=== PATIENT | female | born 1955 | race Asian ===

== ENCOUNTER 2019-06-30 20:25 | Inpatient (IN) | payer OTHER, MEDICAID ==
[~2019-06-30] VITALS: Ht 160 cm; Wt 47.6 kg
[2019-06-30 21:55] LABS: BASOPHIL % 0.3 % (0-2); PLATELET COUNT 202 x10^3mcL (130-400); RED CELL DISTRIBUTION WIDTH 14.3 % (11.5-14.5)
--- NOTE | 2019-06-30 22:36 | NUR ---
PT TAKEN TO CT VIA JESSENIA JOSEPH BY DEICER INSPECTOR PNEUMATIC
--- NOTE | 2019-06-30 22:39 | NUR ---
PT BIB FAMILY FOR C/O BODY ACHES AND INABILITY TO EAT TODAY. PER PT FAMILY THE PT HAS CANCER AND IS SLOWLY "GOING DOWN HILL". PER FAMILY THE PT USUALLY EATS BY MOUTH BUT DOES NOT TALK. PT HAS NOT BEEN ABLE TO EAT ANYTHING TODAY. PT IS ALERT BUT MUTE. PT IS ABLE TO FOLLOW SIMPLE COMMANDS APPROPRIATELY. PT RESPS ARE E/U. PT IS PLACED ON CM AND VSS ARE WITHIN NORMAL LIMITS. NO ACD NOTED
--- NOTE | 2019-06-30 22:49 | NUR ---
PT RETURNED FROM CT WITH NO INCIDENCE
[2019-06-30 23:39] LABS: CALCIUM 8.3 mg/dL (8.5-10.1); CARBON DIOXIDE 28.5 mmol/L (21-32); CHLORIDE SERUM 104 mmol/L (98-107); CREATININE SERUM 0.6 mg/dL (0.6-1.0); GFR1 > 60 mL/min; GLUCOSE SERUM 202 mg/dL (74-106); POTASSIUM SERUM 3.3 mmol/L (3.5-5.1); SODIUM SERUM 142 mmol/L (136-145)
[2019-06-30 23:43] LABS: ALBUMIN 3.4 g/dL (3.4-5.0); ALKALINE PHOSPHATASE 410 U/L (46-116); ALT/SGPT 28 U/L (14-59); AST/SGOT 37 U/L (15-37); LIPASE 263 IU/L (73-393); TOTAL PROTEIN, SERUM 6.8 g/dL (6.4-8.2)
[2019-07-01] VITALS (8 sets, daily range): BP systolic 143–167; BP diastolic 65–87
--- NOTE | 2019-07-01 00:26 | NUR ---
PT RESTING IN POSITION OF COMFORT AT THIS TIME. PT FAMILY AT BEDSIDE. CHEMA CHEST RISE AND FALL NOTED. NO ACD
[2019-07-01] MEDS ORDERED: METFORMIN HYDR500 M1 (00:59)
--- NOTE | 2019-07-01 01:05 | NUR ---
GAVE PT REPORT TO SCOTTY LIANG WHO WILL ASSUME PRIMARY CARE OF PT ONCE THEY ARE TAKEN UPSTAIRS TO MED SURG FLOOR.
--- NOTE | 2019-07-01 01:19 | NUR ---
RECEIVED PT FROM ED VIA [employer], CAME IN DUE TO INABILITY TO SWALLOW X1 DAY. PT HAS HER EYES OPEN, DOES NOT FOLLOW COMMANDS, NON-VERBAL. NO SOB NOTED, LUNG SOUNDS DIMINISHED ON AUSCULTATION. O2 SAT=96%, RA. NO S/S OF CHEST PAIN/PRESSURE, MD=77. NO S/S OF ABDOMINAL PAIN/NAUSEA/VOMITING. ABDOMEN IS SOFT. BOWEL SOUNDS HYPOACTIVE. LAST BM=06/27/19, HAD CONSTIPATION 2 WEEKS AGO. URINE INCONTINENT. IV SITE PATENT AND INTACT. W/ BROWN DISCOLORATION ON THE SACRAL-COCCYGEAL AREA. SIDE RAILS UPX2. CALL LIGHT ON REACH. HOB ELEVATED AT 30 DEG. BILATERAL HEELS ELEVATED W/ A PILLOW. NILESH CONT TO MONITOR
--- NOTE | 2019-07-01 01:20 | NUR ---
PT ALSO HAS BLANCHABLE ERYTHEMA ON THE BUTTOCKS, OPTIFOAM APPLIED FOR PROTECTION.
[2019-07-01 02:04] LABS: CHOLESTEROL/HDL RATIO 5.8
--- NOTE | 2019-07-01 04:10 | NUR ---
PT PULLED OUT IV ON THE LFA GAUGE 20, NEW IV SITE INSERTED ON THE LFA GAUGE 22 W/ GOOD BLOOD RETURN. PT HAD AN EPISODE OF URINE INCONTINENCE, FOUL ODOR NOTED. PT CLEANED AND MADE COMFORTABLE. BILATERAL HEELS KEPT ELEVATED W/ PILLOWS. TURNED AND REPOSITIONED ON HER RIGHT SIDE. NOTED PT ABLE TO MOVE BUE AND BLE, HAS HER EYES OPEN, BUT DOES NOT FOLLOW COMMANDS. WILL CONT TO MONITOR
--- NOTE | 2019-07-01 05:03 | NUR ---
DR. ARELLANO MADE AWARE THAT POTASSIUM=3.3 AND PT'S URINE HAS A FOUL ODOR, PER DR. ARELLANO SHE WILL PLACE IN AN ORDER FOR STRAIGHT CATH FOR URINE COLLECTION. DR. ARELLANO ALSO MADE AWARE THAT BLOOD LQBUS=245, PER DR. ARELLANO HOLD INSULIN COVERAGE AT THIS TIME.
[2019-07-01 06:40] LABS: PLATELET COUNT 170 x10^3mcL (130-400); RED CELL DISTRIBUTION WIDTH 14.1 % (11.5-14.5)
[2019-07-01 06:59] LABS: BASOPHIL % 0 % (0-2)
--- NOTE | 2019-07-01 07:08 | NUR ---
BEDSIDE REPORT GIVEN TO D[place]OTA FOR CONTINUITY OF CARE
--- NOTE | 2019-07-01 07:15 | NUR ---
RECEIVED PT FROM AMMUNITION COMPONENTS INSPECTOR. PT ASLEEP, LETHARGIC, NONVERBAL. PT ON ROOM AIR WITH DIMINISHED LUNG SOUNDS NOTED. PT MED/SURG, NO CHEST PAIN NOTED. PERIPHERAL PULSES PALPABLE, NO EDEMA NOTED. IV ACCESS LFA, CDI INFUSING NS AT 75ML/HR. PT WITH HYPOACTIVE BS NOTED, HX OF CONSTIPATION. PT INCONTINENT OF URINE. PT WITH GENERALIZED WEAKNESS, LETHARGIC, BEDBOUND. SAFETY MEASURES IN PLACE, BED LOW AND LOCKED. CALL LIGHT WITHIN REACH.
--- NOTE | 2019-07-01 07:15 | NUR ---
RECEIVED PT FROM DRILL INSTRUCTOR. PT NONVERBAL, ASLEEP. PT ON ROOM AIR WITH NO RESP DISTRESS NOTED, LUNG SOUNDS DIMINISHED. PT ON TELE 4, NO CHEST PAIN NOTED. IV ACCESS LFA, CDI INFUSING NS AT 75ML/HR AND IVPB POTASSIUM. PERIPHERAL PULSES PALPABLE, NO EDEMA NOTED. HYPOACTIVE BS NOTED. PT INCONTINENT. PT BEDBOUND, NO ACUTE DISTRESS OR DISCOMFORT NOTED AT THIS TIME. SAFETY MEASURES IN PLACE, BED LOW AND LOCKED. CALL LIGHT WITHIN REACH.
[2019-07-01 07:27] LABS: CALCIUM 8.1 mg/dL (8.5-10.1); CARBON DIOXIDE 27.9 mmol/L (21-32); CHLORIDE SERUM 104 mmol/L (98-107); CREATININE SERUM 0.4 mg/dL (0.6-1.0); GFR1 > 60 mL/min; GLUCOSE SERUM 231 mg/dL (74-106); MAGNESIUM 2.5 mg/dL (1.8-2.4); POTASSIUM SERUM 3.1 mmol/L (3.5-5.1); SODIUM SERUM 139 mmol/L (136-145)
[2019-07-01 08:22] LABS: microscopic required? YES; urine erythrocyte TRACE (NEGATIVE)
--- NOTE | 2019-07-01 10:08 | NUR ---
POTASSIUM 3.1, DR. BAXTER AWARE.
--- NOTE | 2019-07-01 10:31 | NUR ---
DR MOONEY AWARE FAMILY MEMBER SAKSHI WANTS TO SPEAK WITH HIM.
--- NOTE | 2019-07-01 10:47 | NUR ---
DR. MOONEY AWARE POTASSIUM 3.1. PT HAD K-RIDER IVPB THIS AM AFTER LAB DRAW. DR DIAS.
--- NOTE | 2019-07-01 11:22 | NUR ---
PT CLEANED WITH CHG WIPES. SURGERY CHECKLIST COMPLETED. PT URINATED, CLEANED AND REAPPLIED OPTIFOAM. PT PICKED UP FOR EGD/PEG PLACEMENT PROCECDURE.
--- NOTE | 2019-07-01 11:34 | NUR ---
PT OFF THE FLOOR FOR PROCEDURE, UNABLE TO CHECH BLOOD SUGAR AT THIS TIME.
--- NOTE | 2019-07-01 12:30 | NUR ---
PT BACK FROM PROCEDURE. PT ASLEEP. VSS, NO DISCOMFORT NOTED AT THIS TIME. GTUBE DRESSING CDI. FAMILY AT BEDSIDE.
--- NOTE | 2019-07-01 14:34 | NUR ---
DISCHARGE INSTRUCTIONS/EDUCATION PROVIDED TO PATIENT. PT TO FOLLOW UP WITH CLINIC PROVIDED IN 2-3 DAYS. PT ENCOURAGED TO ATTEND DIABETIC EDUCATION CLASS. PT VERBALIZED UNDERSTANDING. BS CHECK 327 AT THIS TIME. TELE BOX RETURNED TO [employer]. IV ACCESS REMOVED WITH CATHETER INTACT. NO REDNESS OR BLEEDING NOTED. SAFETY MAINTAINED.
--- NOTE | 2019-07-01 16:00 | NUR ---
PT FEEDING INITIATED AT THIS TIME. NO GASTRIC RESIDUAL NOTED. PT ON GLUCERNA 1.2 AT 20ML/HR WITH WATER FLUSH 40ML Q6 HOURS. HOB AT 35 DEGREES. SAFETY MAINTAINED.
--- NOTE | 2019-07-01 16:17 | NUR ---
DAUGHTER SAKSHI CALLED REQUESTING TO CALL DR MIGUEL MARIE ONCOLOGIST TO THE PATIENT AT [phone] TO EXPLAIN PT CONDITION BEFORE ADMISSION TO [facility] [place]. DR SAHIL DIAS.
--- NOTE | 2019-07-01 17:44 | NUR ---
PT RESTING WITH NO DISCOMFORT OR DISTRESS NOTED AT THIS TIME.
--- NOTE | 2019-07-01 18:57 | NUR ---
Speech Pathology notes: Pt had GT placement today per Clara LIANG. Pt not following any directions per RN. Clara. No swallow evaluation today.
--- NOTE | 2019-07-01 19:01 | NUR ---
PT STABLE AT THIS TIME. WILL CONTINUE TO MONITOR AND ENDORSE CARE TO UI UX WEB DEVELOPER.
--- NOTE | 2019-07-01 19:25 | NUR ---
RECEIVED PT RESTING IN BED, SUPPORTIVE FMAILY AT BEDSIDE. PT NONVERBAL, HX OF STAGE 4 LUNG CANCER WITH METS TO BRAIN. PT S/P EGD &PEG TUBE INSERTION WITH GLUCERNA RUNNING AT 20ML/HR CURRENTLY. WILL ADVANCE RATE TO 30ML/HR IF RESIDUAL PERMITS. PT MEDSURG, PULSES PALPABLE BILAT. SCDS ON. RESP EVEN AND UNLABORED ON RA, NO S/S OF SOB. DIM BILAT BASES. ABD SOFT, FLAT, WITH PEG TUBE IN PLACE, DSG CDI. PT INCONTINENT OF URINE AND STOOL, ON AIR MATTRESS. BLANCHABEL REDNESS TO SACRAL AREA, OPTIOFRM IN PLACE. IV SITE TO THE LFA PATENT, NS @ 75ML/HR. NO REDNESS, SWELLING OR PAIN NOTED. PT RECEIVING ANTIBIOTICS, ALL COMFORT AND SAFETY MEASURES PROVIDED FOR, CALL LIGHT WITHIN REACH, BED IN LOWEST POSITION, WILL CONTINUE TO MONITOR.
--- NOTE | 2019-07-01 19:45 | NUR ---
SPOKE TO FAMILY IN REGARDS TO ENSURING CONTINUITY OF CARE. PT IS BEING SEEN OUTPATIENT BY ONCOLOGY . (DR MIGUEL MARIE: [phone]). FAMILY REQUEST TO HAVE RESIDENT TEAM MANAGING PATIENT TO PHONE DR MIGUEL MARIE IN AM AFTER ROUNDS TO UPDATE WITH PLAN OF CARE. UPDATED PT FAMILY THE DOCTORS WITH DO ROUNDS IN AM AND THEY WILL BE ABLE TO PHONE FOR COLLABORATION OF INTERDISCIPLANARY TEAMS. FAMILY REPROTS UNDERSTANDING, ALL QUESITONS AND CONCERNS ADDRESSED, CALL LIGHT WITHIN REACH, BED IN LOWEST POSITION, WILL CONTINUE TO MONITOR.
--- NOTE | 2019-07-01 22:00 | NUR ---
PT ON TUBE FEEDINGS CURRENTLY RUNNING AT 20ML/HR, PER ORDER, CHECKED RESIDUAL= 10ML, RETURNED BACK TO PT AND ADVANCED TUBE FEEDING RATE BY 10ML. CURRENT TUBE FEEDING RATE NOW= 30ML/HR. WILL CONTINUE TO MONITOR TO TOLERANCE AND ADJUST ACCORDINGLY. NEXT SCHEDUELD RATE CHANGE AT 0400 07/02, WILL ASSESS RESIDUAL TO ENSURE ADVANCEMENT IS APPROPRIATE. CALL LIGHT WITHIN REACH, BED IN LOWEST POSITION, WILL CONTINUE TO MONITOR.
[2019-07-02] VITALS (7 sets, daily range): BP systolic 150–178; BP diastolic 68–88
--- NOTE | 2019-07-02 05:00 | NUR ---
PT RESTED IN INTERVALS DURING SHIFT, NO ACUTE CHANGES OCCURRING OVERNIGHT. PT TOLERATING TUBE FEEDINGS WELL, CURRENT RATE OF GLUCERNA 1.2 @ 40ML/HR, FWF 40ML Q6H, VERY LITTLE RESIDUAL WHEN CHECKED (<10ML). ALL RETURNED BACK TO PT, IV SITE REMAINS PATENT TO LFA, NS @ 75ML/HR. NO REDNESS, SWELLING OR PAIN NOTED. OPTIFORM TO BUTTOCKS REPLACED, CDI. PT NOW ON ZOSYN, PT REMAINS ON RA. ALL COMFORT AND SAFETY MEASURES PROVIDED FOR, CALL LIGHT WITHIN REACH, BED IN LOWEST POSITION, WILL CONTINUE TO MONITOR.
[2019-07-02 06:15] LABS: PLATELET COUNT 176 x10^3mcL (130-400); RED CELL DISTRIBUTION WIDTH 13.7 % (11.5-14.5)
--- NOTE | 2019-07-02 06:17 | NUR ---
CHECKED PT BLOOD SUGAR= 239, SPOKE TO DR. ARELLANO IN REGARDS TO COVERAGE, PER DR. ARELLANO, WILL HOLD OFF ON INSULIN, WILL COLLABORATE WITH NGUYỄN IN REGARDS TO MANAGING SUGARS IN THE FUTURE WHILE PT ON TUBE FEEDINGS. PT CURRENTLY WITH GLUCERNA 1.2 @ A RATE OF 40ML/HR. NEXT RATE INCREASE SCHEDULED FOR 10AM IF THE RESIDUAL PERMITS. PT RESIDUAL HAS REMAINED < 10ML DURING ROUTINE CHECKS. ALL RETURNED BACK TO PT. PT BED LINENS CHANGED, OPTIFORM REPLACED TO SACRAL AREA, CALL LIGHT WITHIN REACH, BED IN LOWEST POSITION, WILL CONTINUE TO MONITOR.
[2019-07-02 06:38] LABS: CALCIUM 8.2 mg/dL (8.5-10.1); CARBON DIOXIDE 28.7 mmol/L (21-32); CHLORIDE SERUM 103 mmol/L (98-107); CREATININE SERUM 0.3 mg/dL (0.6-1.0); GFR1 > 60 mL/min; GLUCOSE SERUM 245 mg/dL (74-106); MAGNESIUM 2.3 mg/dL (1.8-2.4); PHOSPHOROUS 2.7 mg/dL (2.5-4.9); POTASSIUM SERUM 3.4 mmol/L (3.5-5.1); SODIUM SERUM 136 mmol/L (136-145)
[2019-07-02 06:50] LABS: BASOPHIL % 0 % (0-2)
--- NOTE | 2019-07-02 07:20 | NUR ---
RECEIVED PT IN BED. ASSESSED AND DOCUMENTED. DENIES PAIN THIS TIME. STABLE. TOLERATING FEEDING WELL. SAFTEY PRECAUTIONS ARE IN PLACE. WILL MONITOR.
--- NOTE | 2019-07-02 10:00 | NUR ---
CHECKED GASTRIC RESIDUAL, ONLY 2ML NOTED, INCREASE RATE TO 50ML/HR. WILL MONITOR.
--- NOTE | 2019-07-02 10:53 | NUR ---
INFORMED ABOUT BP 167/68 AND RECEIVED ORDER FOR HCTZ 12.5MG PO AND GIVEN. WILL RECHECK BP. PT ASYMPTAMATIC.
--- NOTE | 2019-07-02 11:35 | NUR ---
Initial Nutrition Assessment: 201/B JULIANNA MOSLEY [place] HR Dx: Failure to thrive PMHx: DM, Stage 4 lung cancer PSHx: none Labs: K 3.4L, BG 245H, TG 167H, CHOL 214H, LDL 142H, A1C 6.3H, WBC 12.7H Meds: D50%, Humulin, morphine, Zofran, zosyn Diet: PEG Glucerna 1.2 @ 20 ml/hr, goal 50 ml/hr, advance Q6H, FWF 40 ml Q6H PO intake since admission: NPO Ht: 160.02 cm (63") Wt: 47.6 kg (105#) BMI: 18.6 kg/m2 Bed scale: 47.6 kg IBW: 115# (52 kg) %IBW: 91 UBW: unable to access Age: 64/F Food Allergies: NKFA Skin: discoloration to sacral area Donald:12 Edema: none GI: Last BM: 06/27 Per H&P, Pt is a 64-year-old female with PMH of DM, lung cancer with mets was brought in by her family because she was not eating or drinking anything since last night. Her daughter reported that patient is unable to swallow water and when she tried giving, it was drooling, so she called her oncologist who asked her to go to the ER. RD Note (07/02): Patient was sleeping and Glucerna 1.2 was running @ 40 ml/hr. Per AZUL Best, rate will be increased to 50 ml/hr soon and that patient is tolerating tube feedings without any residuals. Patient is to be D/C today with bolus feedings. Per progress note (07/02), GI consulted; Dr Westbrook placed PEG tube and Tube feeding is initiated, currently at 40 ml/hr. Problem with: N/V/D/C: none per RN Problems with: Chewing: Swallowing: yes Current appetite: unable to access Recent wt change: unable to access %wt change: n/a Vitamin/Supplement use: unable to access Special diet at home: unable to access Physical activity: unable to access Nutrition education given: not possible at this time Food-drug interactions: none Education given: n/a Estimated Nutritional Needs Based on body weight (47.6 kg) Energy: 8467-4873 kcal/day (30-35 kcal/kg for geriatric maintenance) Protein: 57-67 g/day (1.2-1.4 g/kg for geriatric maintenance) Fluid: 7221-2188 mL/day (1 mL/kcal) Nutrition Diagnosis: 1. Increased nutrient needs related to lung cancer, geriatric age as evidenced by estimated calorie and protein needs, WBC 12.7 Intervention 1. Bolus feedings recommendations: Glucerna 1.2, bolus of 200 ml Q4H, FWF 80 ml Q4H/ or per MD. This will provide 1440 kcal and 72g protein. This will meet 100% calorie and protein needs of the patient. Paged Dr. Eaton, waiting for call back. Monitor/Evaluate Goal: TF intake at least 75% of estimated needs Monitor: TF intake/ tolerance, Labs, GI function F/U in 2-3 days as high risk 1/2-3
--- NOTE | 2019-07-02 12:00 | NUR ---
RECHECK BP IS 159/87 AFTER HCTZ VIA GT ORDERED, INFORMED ABOUT THAT. ASYMPTAMATIC, STABLE.
--- NOTE | 2019-07-02 12:30 | NUR ---
FAMILY AT BEDSIDE. EDUCATED PT AND DAUGHTER ABOUT HOW TO GIVE BOLUS FEEDING, THEY UNDERSTOOD BUT NOT COMFORTABLE TO DO IT AT HOME BY THEMSELVES. INFORMED ABOUT THAT. HE SAID SHE WILL HOLD DISCHARGE AND WAIT FOR HH ARRANGE. FAMILY AWARE AND REQUESTED FOR TO TALK TO S.S AND GAVE SS CALL AND THEY CAME AND SPOKE WITH PT. PT IS STABLE. CHARGE NURSE AWARE ABOUT EVERYTHING. DENIES ANY PAIN.
--- NOTE | 2019-07-02 13:00 | NUR ---
PT IS STABLE, EYES ARE OPEN THIS TIME BUT STILL NONVERBAL AND NO OTHER RESPONSES. STABLE.
--- NOTE | 2019-07-02 15:33 | NUR ---
SPOKE WITH DR. BAXTER REGARDING D/C PLAN NOTED ORDER FOR DISCHARGE FOR 07/04/19. PER DR. BAXTER PLAN D/C AT THAT TIME. MADE AWARE THAT DR. PAREDES HAS SPOKE WITH FAMILY AND HOSPICE WAS DISCUSSED. FAMILY WAS OPEN TO HOSPICE AND THEY STATED THAT THEY WANTED TO SPEAK WITH ONCOLOGIST BEFORE MAKING FINAL DICISION. NOTIFIED ATTENDING NURSE AND CM WELL. CONT TO MONITOR.
--- NOTE | 2019-07-02 17:53 | NUR ---
BP 178/88 WITH MAP 145, INFORMED SADULA AND SHE ORDERED HYDRALAZINE 10MG GT AND GIVEN. PT ASYMPTAMATIC. NO SIGNS OF ANY PAIN NOTED. NO MOANING NOTED. PT IS SLEEPING THIS TIME. STABLE. WILL RECHECK BP.
--- NOTE | 2019-07-02 18:45 | NUR ---
RECHECKED BP 160/84 AFTER HYDRALAZIN, WILL ENDORSE TO PM SHIFT FOR MONITERING BP. PT IS STABLE. DENIES ANY PAIN.
--- NOTE | 2019-07-02 19:20 | NUR ---
PT RESTING IN BED, SLEEPING THIS TIME. STABLE. GAVE REPORT TO AIRCRAFT PNEUDRAULIC SYSTEMS MECHANIC NURSE.
--- NOTE | 2019-07-02 19:25 | NUR ---
Pt. received from day shift, currently asleep, but arousable using verbal, tactile, and light pain stimuli on collar bone at this time. Pt. has no s/o distress, sob, or pain. Pt. at this time responds to name and is able to open eyes at this time. Peg Tube feeding in currently running at 40 cc/hr, will continue to monitor pt. IV site patent on LFA w/ NS running at 75 mL/hr, no s/o infiltration or redness at site. Pt. safety in check w/ call light placed within reach, bed set at lowest position, will continue to monitor pt. at this time.
--- NOTE | 2019-07-03 02:19 | NUR ---
Pt. currently asleep, but arousable using tactile stimuli. Pt. BP noted 163/83, hydralazine PO given (Check eMar for time). Pt. BP rechecked later, 156/77, pt has no s/o distress or pain throughout the shift. Will continue to monitor pt. at this time.
[2019-07-03 05:05] VITALS: BP 158/79
[2019-07-03 06:39] LABS: PLATELET COUNT 176 x10^3mcL (130-400)
[2019-07-03 06:49] LABS: ALKALINE PHOSPHATASE 387 U/L (46-116); ALT/SGPT 36 U/L (14-59); AST/SGOT 39 U/L (15-37); BILIRUBIN TOTAL 0.52 mg/dL (0.20-1.00); CALCIUM 8.6 mg/dL (8.5-10.1); CARBON DIOXIDE 30.7 mmol/L (21-32); CHLORIDE SERUM 98 mmol/L (98-107); CREATININE SERUM 0.3 mg/dL (0.6-1.0); GFR1 > 60 mL/min; GLUCOSE SERUM 256 mg/dL (74-106); MAGNESIUM 2.3 mg/dL (1.8-2.4); PHOSPHOROUS 3.1 mg/dL (2.5-4.9); POTASSIUM SERUM 3.5 mmol/L (3.5-5.1); SODIUM SERUM 135 mmol/L (136-145)
[2019-07-03 06:57] LABS: ALBUMIN 2.8 g/dL (3.4-5.0); TOTAL PROTEIN, SERUM 6.1 g/dL (6.4-8.2)
--- NOTE | 2019-07-03 07:20 | NUR ---
RECEIVED PT IN BED. ASSESSED AND DOCUMENTED. STABLE. DENIES ANY PAIN. SAFTEY PRECAUTIONS ARE IN PLACE. WILL MONITOR. REPOSITIONING PT Q2H, ON AIRMATTRESS.
[2019-07-03 07:45] VITALS: BP 170/77
[2019-07-03 08:40] LABS: BASOPHIL % 0 % (0-2)
--- NOTE | 2019-07-03 09:45 | NUR ---
PT BP 170/77 WITH MAP 96, HCTZ 12.5 MG PO GIVEN ORDERED. HARD METALS HAND ENGRAVER DAYLIN AWARE ABOUT BP. WILL RECHECK BP. PT ASYMPTAMATIC.
[2019-07-03 10:27] VITALS: BP 155/74; BP 155/743
--- NOTE | 2019-07-03 10:30 | NUR ---
RECHECK BP IS 155/74 AFTER HCTZ VIA GT. PT IS STABLE. WILL MONITOR.
[2019-07-03 12:05] VITALS: BP 147/70
--- NOTE | 2019-07-03 12:30 | NUR ---
PT RESTING IN BED COMFORTABLY, STABLE. BP 147/70 THIS TIME. FAMILY AT BEDSIDE. SAFTEY PRECAUTIONS ARE IN PLACE. WILL MONITOR.
--- NOTE | 2019-07-03 16:00 | NUR ---
CHANGE FEEDING TUBE AND PUT NEW FEEDING BAG, RATE 50ML/HR AND TOLERATING WELL.
[2019-07-03 16:07] VITALS: BP 153/72; BP 167/81
--- NOTE | 2019-07-03 16:40 | NUR ---
PT BP 167/81 WITH MAP 100, HYDRALAZINE 10MG VIA GT GIVEN. PT ASYMPTAMATIC. STABLE. WILL RECHECK BP.
--- NOTE | 2019-07-03 17:40 | NUR ---
RECHECKED PT BP 153/72 WITH MAP 99 AFTER HYDRALAZINE VIA GT. PT IS STABLE. WILL ENDORSE NEXT SHIFT TO MONITOR BP.
--- NOTE | 2019-07-03 19:00 | NUR ---
PT RESTING IN BED COMFORTABLY, DENIES ANY PAIN. STABLE. REPOSITIONED Q2H. GAVE REPORT TO MARINE ENGINEER CPVEC NURSE.
--- NOTE | 2019-07-03 19:29 | NUR ---
RECEIVED PATIENT IN BED NONVERBAL AND NON RESPONSIVE WITH NO SIGN OF ACUTE DISTRESS. BREATHING EASY AND NONLABOR WITH DIMINISHED BS SATTING AT 96% RA. ABDOMEN SOFT AND NONTENDER WITH GTUBE FEEDING GLUCERNA INFUSING AT 50ML/HR. IV TO LFA INTACT AND INFUSING WELL. WILL CONTINUE TO MONITOR, BED TO LOWEST POSITION.
[2019-07-03 20:09] VITALS: BP 158/74
--- NOTE | 2019-07-03 23:51 | NUR ---
APPEAR TO BE SLEEPING BREATHING EASYA ND NONLABOR. WILL CONTINUE TO MONITOR.
--- NOTE | 2019-07-04 05:03 | NUR ---
CHECKED AT INTERVALS FOR NEEDS AND SAFETY. REPOSITIONED FOR COMFORT. ALL NEEDS ATTENDED.
[2019-07-04 05:37] VITALS: BP 162/82; BP 165/74
--- NOTE | 2019-07-04 07:25 | NUR ---
RECEIVED PATIENT NONVERBAL AND OPEN EYES WITH CONTACT STIMULI, NO ACUTE RESP DISTRESS NOTED. IV TO LFA INTACT AND INFUSING WELL, GT W/ TF AT 50ML/HR INTACT AND PATENT. CALL LIGHT WITHIN REACH.
--- NOTE | 2019-07-04 07:42 | NUR ---
PT. WITH LOW KELLY SCALE AT RISK CONTINUE PRESSURE ULCER PREVENTION INTERVENTIONS: -TURN AND REPOSITION PATIENT Q 2H OFFLOAD LEFT AND RIGHT HIPS -ASSESS AND MONITOR SKIN CONDITION DURING POSITION CHANGE -OFFLOAD BILATERAL HEELS BY PLACING PILLOWS UNDER CALVES AT ALL TIMES, UNLESS OTHERWISE CONTRAINDICATED -PRESSURE REDISTRIBUTION SURFACE THERAPY WITH PILLOWS/WEDGE POSITIONER -KEEP SKIN CLEAN AND DRY AT ALL TIMES.
[2019-07-04 08:48] VITALS: BP 157/73
--- NOTE | 2019-07-04 09:17 | NUR ---
ALL MEDS ADMINISTERED BY STUDENT NURSE WITH INSTRUCTOR PANTERA AT THIS TIME.
--- NOTE | 2019-07-04 09:17 | NUR ---
PATIENT UP WALKING IN THE HALLWAY WITH VISITOR, NOTED SOB AND MILD DISTRESS DURING WALKING. SIT IN CHAIR. ALL PO MEDS ADMINISTERED AND TOLERATED. NEEDS MET. CONT TO MONITOR.
--- NOTE | 2019-07-04 10:13 | NUR ---
DR. MOONEY SEEN PATIENT AND RN UPDATE PATIENT TOLERATED TF, DR. MOONEY ORDER TO STOP IVF. IV HEPLOCK. REPOSITION PATIENT TO RT SIDE, BLE/HOB ELEVATED. GUARDIAN FAMILY MEMBER DAYLIN INFORM DR. MOONEY PATIENT IS DISCHARGE TO SNF W/ HOSPICE TODAY AND CM IS WORKING ON IT. CONT TO MONITOR
--- NOTE | 2019-07-04 10:17 | NUR ---
DR. PAREDES SEEN PATIENT AND D/C ZOSYN IV.
--- NOTE | 2019-07-04 11:17 | NUR ---
PATIENT AWAKEN, OPEN EYES AND RESPOND TO TOUCH. SON CHUCKY AT BEDSIDE. GAVE LASIX 20MG IVP AND 6 UNITS REGULAR INSULIN SQ FOR BS 271. CONT TO MONITOR.
[2019-07-04 12:15] VITALS: BP 157/63
--- NOTE | 2019-07-04 12:18 | NUR ---
INCONTINENT CARE PROVIDED, URINE. REPOSITION TO BACK. HOB ELEVATED. CONT TO MONITOR.
--- NOTE | 2019-07-04 15:00 | NUR ---
PATIENT RESTING COMFORTABLE. NO DISTRESS NOTED. NEW SPIKE TF AND REPLACE TUBING, RATE AT 50ML/HR NO RESIDUAL. REPOSITION TO BACK. CONT TO MONITOR.
--- NOTE | 2019-07-04 16:52 | NUR ---
PATIENT AWAKEN OPEN EYES NO DISTRESS, BS 316 GAVE 8 UNITS REGULAR SQ AND TOLERATED WELL. CONT TO MONITOR.
[2019-07-04 17:22] VITALS: BP 132/77
--- NOTE | 2019-07-04 18:00 | NUR ---
PATIENT REMAIN AWAKE, FAMILY MEMBERS CAME IN TO VISIT PATIENT, PER SON CHUCKY COMMENT PATIENT IS MORE AWAKE THAN BEFORE; ASKING RN IF THERE ANY MEDICATIONS CAUSES ALTERED; UPDATE PATIENT MEDS WITH SON THERE IS NOT CHANGE IN ROUTINE MED, EXCEPT ABX COMPLETED. QUESTIONS ADDRESSED, CONT TO MONITOR.
--- NOTE | 2019-07-04 19:20 | NUR ---
PT RECIEVED AWAKE AND ALERT, APHASIC, UNABLE TO MAKE NEEDS KNOWN OR FOLLOW SIMPLE COMMANDS. MED-SURG, NO S/S OF CP/PRESSURE OBSERVED. PULSES PALPABLE, NO EDEMA PRESENT. BREATHING IS EVEN AND UNLABORED ON RA, NO RESP DISTRESS NOTED. BOWEL TONES HYPOACTIVE X4, ABD SOFT AND NONDISTENDED, NO N/V PRESENT. S/P PEG PLACEMENT ON 07/01/19. GLUCERNA 1.2 INFUSING WELL TO PEG TUBE @ 50 ML/HR WITH 40 ML FWF Q6HR, GASTRIC RESIDUAL-LESS THAN 5 ML, REPLACED. HOB ELEVATED. VOIDS FREELY, EPISODES OF URINARY INCONTINENCE. GENERALIZED WEAKNESS, BED BOUND, ON AIR MATTRESS. SKIN IS WARM AND DRY, INTACT. NO S/S OF PAIN OBSERVED. IV TO LFA, PATENT AND INTACT. NO ACUTE DISTRESS NOTED. BED ALARM ON. BED IN LOWEST SETTING, SIDE RAILS UP X2, CALL LIGHT WITHIN REACH. WILL CONT TO MONITOR.
[2019-07-04 19:53] VITALS: BP 149/83
--- NOTE | 2019-07-05 01:03 | NUR ---
PT RESTING IN BED WITH EYES CLOSED, BUT IS EASILY AROUSABLE. BREATHING IS EVEN AND UNLABORED, NO RESP DISTRESS NOTED. NO S/S OF PAIN OBSERVED. PT INCONTINENT OF URINE, PT CLEANED AND REPOSITIONED, OPTIFOAM IN PLACE. NO ACUTE DISTRESS NOTED. TUBE FEEDING INFUSING WELL, GASTRIC RESIDUAL LESS THAN 5 ML, REPLACED. HOB ELEVATED. BED ALARM ON. CALL LIGHT WITHIN REACH. WILL CONT TO MONITOR.
[2019-07-05 05:52] VITALS: BP 157/77
--- NOTE | 2019-07-05 07:39 | NUR ---
PT SLEPT WELL THROUGHOUT THE EVENING. BREATHING IS EVEN AND UNLABORED, NO RESP DISTRESS NOTED. NO S/S OF PAIN OBSERVED. GLUCERNA 1.2 INFUSING WELL TO PEG TUBE @ 50 ML/HR WITH 40 ML FWF Q6H, GASTRIC RESIDUAL-10 ML, REPLACED. HOB ELEVATED. PT INCONTINENT OF URINE, PT CLEANED AND REPOSITIONED. IV INTACT TO LH. NO ACUTE CHANGES ENCOUNTERED DURING SHIFT. ALL NEEDS MET AND ANTICIPATED. BED ALARM ON, CALL LIGHT WITHIN REACH. CONTINUITY OF CARE ENDORSED TO AM NURSE. ALL QUESTIONS AND CONCERNS ADDRESSED.
--- NOTE | 2019-07-05 08:00 | NUR ---
RECEIVED PATIENT AWAKE, NON-VERBRAL, LUNG CANCER STG 4, METS TO BRAIN. NO S/S OF HEADACHE. DYSPHAGIC. GT FEEDING OF GLUCERNA 1.2 50CC/HR. RESIDUAL CHECKED 10 CC REPLACED. P = 115, NO SOB. BREATHING SOUND DIMINISHED CHEMA. RR= 16; O2 SAT 96% ON RA. URINE INCONT. SKIN INTACT, REDNESS TO COCCYX AREA SUBSIDED. IV TKO TO LFA. SITE CLEAN. ON AIR MATTRESS. REPOSITION Q2H. NO S/S OF PAIN. BED ALARM ON. SIDE REAL UP X4.
[2019-07-05 08:33] VITALS: BP 146/82
--- NOTE | 2019-07-05 10:32 | NUR ---
RESIDUAL CHECK 1ML, REPLACED. GT SITE CARE GIVEN. PATIENT'S LAST BM ON 06/27/19, NO BM X 8 DAY. SUJIT WHITT, REPORTED. NEW ORDER OF DULCOLAX SUPP GIVEN. CONTINUE MONITOR.
[2019-07-05 11:35] VITALS: BP 146/82
--- NOTE | 2019-07-05 11:57 | NUR ---
Follow-up Nutrition Assessment: 201/B MENDEZ MOSLEYINGRID FU HR Dx: Failure to thrive PMHx: DM, Stage 4 lung cancer Labs: (07/03) NA 135L, BG 256H, TG 167H, CHOL 214H, LDL 142H, A1C 6.3H, WBC 14.8H Meds: D50%, Humulin, morphine, Zofran, zosyn Diet: PEG Glucerna 1.2 @ 20 ml/hr, goal 50 ml/hr, advance Q6H, FWF 40 ml Q6H PO Intake: NPO Weights: (07/01) 47.6 kg, (07/05) unable to access I/Os: (07/04) 3195/400 (2795) Skin: intact, g-tube Donald: 11 Edema: none GI: s/p PEG placement Last BM: 06/27 Note (07/05): Patient was sleeping and Glucerna 1.2 was running @ 50 ml/hr. Per RN Julieth, patient is tolerating tube feedings without any residuals. Patient is to be D/C today to SNF. Estimated Nutritional Needs Based on body weight (47.6 kg) Energy: 5622-5822 kcal/day (30-35 kcal/kg for geriatric maintenance) Protein: 57-67 g/day (1.2-1.4 g/kg for geriatric maintenance) Fluid: 2381-7296 mL/day (1 mL/kcal) Nutrition Diagnosis: 1.Increased nutrient needs related to lung cancer, geriatric age as evidenced by estimated calorie and protein needs, WBC 14.8 (ongoing) Intervention: 1. Bolus feedings recommendations: Glucerna 1.2, bolus of 200 ml Q4H, FWF 80 ml Q4H/ or per MD. This will provide 1440 kcal and 72g protein. This will meet 100% calorie and protein needs of the patient. 2. Continue current tube feeding regimen. Monitor/Evaluate: Goal: Have pt meet at least 75% of estimated needs Monitor: TF intake/ tolerance, Labs, GI function F/U in 3-5 days as moderate risk 07/08-8
[2019-07-05 12:29] VITALS: BP 142/75
--- NOTE | 2019-07-05 13:16 | NUR ---
PATIENT WOULD BE DISCHARGEED TO [facility] FOR HOSPICE CARE. REPORT GIVEN TO MARLENE KEATING, TRANSFER TIME AT 1430. FAMILY AWARE OF.
--- NOTE | 2019-07-05 13:40 | NUR ---
PATIENT HAD A MODERATE AMT BM AFTER DULCOLAX SUPP. STOOL FROM FORMED TO LOOSE.
--- NOTE | 2019-07-05 15:55 | NUR ---
D/C TO SNF VIA MEDICAL TRANSPORTATION. IV D/C'D. OVER NEEDLE CATH INTACT. PHOTO TO SACRAL/COCCYX AREA TAKEN. REDNESS WAS SUBSIDING. NO OPENED WOUND. G TUBE FLUSHED AND CLAMPED. CONDITION STABLE.
== END 2019-07-05 15:56 | DRG 180 ==
LOC: ED 20:25 → MU 23:57
PROVIDERS: Emergency Medicine; Internal Medicine Gastroenterology; ADMIT General Practice
PROC: 0DH68UZ Insertion of Feeding Device into Stomach, Via Natural or Artificial Opening Endoscopic (ICD-10-PCS; principal; 2019-07-01 11:00)
DX: C34.90 Malignant neoplasm of unspecified part of unspecified bronchus or lung (principal); J18.9 Pneumonia, unspecified organism; C79.31 Secondary malignant neoplasm of brain; C79.51 Secondary malignant neoplasm of bone; D68.69 Other thrombophilia; R62.7 Adult failure to thrive; E11.65 Type 2 diabetes mellitus with hyperglycemia; E87.6 Hypokalemia; R74.0 Nonspecific elevation of levels of transaminase and lactic acid dehydrogenase [LDH]; Z79.84 Long term (current) use of oral hypoglycemic drugs
CPT/HCPCS: 43235; 82962; 83880; 87804; G0378; J0456; J0696; J1200; J1610; J1815; J1940; J2250; J2310; J2543; J3010; J3480; J3490; J7030; J7060; J7620; Q0092